=== PATIENT | male | born 1945 | race Caucasian/White ===

== ENCOUNTER → 2017-04-23 | Day surgery (SDC) | payer OTHER ==
[~2017-04-23] MED LIST: ACETAMINOPHEN/HYDROcodone 325 MG/5 MG TAB ONE; BUPIVACAINE/EPINEPHRINE 0.5% PF 10 ML VIAL ONE; EPINEPHrine HCL (1:1000) 1 MG/ML VIAL OTHER ONE; KETOROLAC TROMETHAMINE 30 MG/ML (IVP) VIAL IV PUSH ONE; LACTATED RINGER'S 1000 ML INJ 1,000 ML ONE; MIDAZOLAM HCL 2 MG/2 ML VIAL ONE; ONDANSETRON HCL 4 MG/2 ML VIAL IV PUSH ONE; PROPOFOL 200 MG/20 ML AMP IV ONE; TRIAMCINOLONE ACETONIDE 40 MG/ML VIAL ONE; ceFAZolin INJ 1,000 MG VIAL ONE
--- NOTE | 2017-04-23 22:45 | MP ---
cc: GLADYS VELAZQUEZ M.D. 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 SURGEON Radha Velazquez. DEMAND GENERATION MANAGER Galen Owens, [place] The surgical procedure was assisted by my Advanced Registered Nurse Practitioner. My IRONER HAND presence was necessary throughout this case for the manipulation and positioning of the surgical extremity. My IRONER HAND was assisting me throughout the duration of this procedure. The skill set of an Advance Registered Nurse Practitioner was medically necessary to complete this procedure. During the surgical case, the automotive brake technician was working at the back table and the Advance Registered Nurse Practitioner was directly assisting me. PROCEDURES 1. Left knee arthroscopy with partial medial meniscectomy, 2. Partial lateral meniscectomy, 3. Chondroplasty of the medial femoral condyle, 4. Chondroplasty of the patella. ESTIMATED BLOOD LOSS Minimal ANESTHESIA General anesthesia TOURNIQUET TIME 0 minutes PROCEDURE IN DETAIL The patient was brought back to the operative theater. General anesthesia was administered. He was placed in the supine position. The left lower extremity was prepped and draped in usual sterile fashion after he had been placed into a leg stevens. He received intravenous Ancef. We made standard inferolateral portal incision. We then performed a diagnostic arthroscopy finding mild synovitis in the suprapatellar pouch. There was some grade 2 chondromalacia of the patellofemoral joint with a small area of unstable segment of cartilage off of the patella. We made inferomedial portal. We used an oscillating shaver we removed that small area of unstable segment of cartilage. There was quite a bit of overgrowth of the fat pad which was getting impinged between the patella and the trochlea. We did resect this using the oscillating shaver. The medial femoral condyle had diffuse grade 3 chondromalacia with crystalline deposits within the exposed cartilage. There were some areas of unstable segments so we used an oscillating shaver to perform a chondroplasty. Overall, we estimate that there was about 40% thickness tearing of the cartilage and in some areas slightly more than that. There was a complex tearing of the medial meniscus with a large cleavage noted in the mid body and complex tearing in the posterior horn. Using combination of meniscal biter and oscillating shaver to perform a partial meniscectomy removing the unstable segments of cartilage, we removed approximately 40% of the meniscus. The anterior cruciate ligament was found to be intact. The lateral compartment showed tearing of the anterior horn of the lateral meniscus with unstable segments noted superiorly on the anterior horn. Using the oscillating shaver to debride this, we removed approximately 10% of the meniscus. The remaining meniscus did have an area of some crystalline deposits but no significant deep tearing. There was no significant chondromalacia of the lateral femoral condyle. There were no loose bodies in the medial or lateral gutters. We gave an articular injection with 30 mL 0.25% Marcaine with 40 mg of Kenalog. Portals were closed with 2-0 Vicryl followed by 3-0 nylon. Leg was dressed. Postoperative plan is weight bear as tolerated. MD DENNISE Torre/ /3:50 PM /10:37 PM
== END | disposition home or self-care (01) ==
LOC: ESDC 13:13
PROVIDERS: ATTEND Orthopaedic Surgery
DX: S83.232A Complex tear of medial meniscus, current injury, left knee, initial encounter (principal); S83.282A Other tear of lateral meniscus, current injury, left knee, initial encounter; M22.42 Chondromalacia patellae, left knee
CPT/HCPCS: 01400; 29880; J0171; J0690; J1885; J2250; J2405; J3010; J3301; J7120

== ENCOUNTER 2017-06-21 16:51 | Emergency (ER) | payer OTHER ==
[2017-06-21 17:49] VITALS: BP 129/80; PULSE 69; RESP 18; TEMP 97.7; O2SAT 95
== END 2017-06-21 21:44 | disposition left against medical advice (07) ==
LOC: PHED 16:51
DX: S81.811A Laceration without foreign body, right lower leg, initial encounter (principal); X58.XXXA Exposure to other specified factors, initial encounter
CPT/HCPCS: 99281

== ENCOUNTER 2017-06-21 22:19 | Emergency (ER) | payer OTHER ==
[~2017-06-21] VITALS: Ht 172.7 cm; Wt 94.0 kg
[2017-06-21 22:20] VITALS: BP 136/79; PULSE 70; RESP 16; TEMP 98.4; O2SAT 96
--- NOTE | 2017-06-21 23:06 | PD ---
HPI Chief Complaint: Laceration/Skin Injury Time Seen by Provider: 22:55 Travel History International Travel<30 days: No Contact w/Intl Traveler<30days: No Traveled to known affect area: No History of Present Illness HPI 72-year-old white male presents to emergency department with a laceration to his right pretibial region from a piece of metal on a stool that had broken this afternoon when he was working in the yard. He denies any numbness or tingling. He has not had a tetanus shot over 5 years. He denies any other injuries. [facility] Past Medical History Narrative Medical Hypertension, hypercholesterolemia, BPH Cardiovascular Problems: Yes (HTN) Tetanus Vaccination: > 5 Years Social History Alcohol Use: No Tobacco Use: No Substance Use: No Allergies-Medications (Allergen,Severity, Reaction): Coded Allergies: No Known Allergies (Verified , 06/21/17) Uncoded Allergies: NKA (Allergy, Unknown, 06/19/03) Reported Meds & Prescriptions Reported Meds & Active Scripts Active Review of Systems Except as stated in HPI: all other systems reviewed are Neg Physical Exam Narrative GENERAL: This is a well-nourished, well-developed patient, in no apparent distress. SKIN: No rashes, ecchymoses or lesions. Warm and dry. HEAD: Atraumatic. Normocephalic. EYES: PERRL, EOMI, no discharge or injection. No scleral icterus. EARS: Clear NOSE: Nasal turbinates appear normal. THROAT: Mucosa pink and moist. Airway patent. NECK: Trachea midline. supple, moves head freely. LUNGS: Clear to auscultation. CV: Regular in rhythm. ABDOMEN: Soft nontender. EXT: No clubbing cyanosis or edema. Patient has a 5 cm laceration to the right anterior pretibial region of the right lower leg. No foreign body. Neurovascular intact. Data Data Last Documented VS Vital Signs Date Time Temp Pulse Resp B/P (MAP) Pulse Ox O2 Delivery O2 Flow Rate FiO2 06/21/17 22:20 98.4 70 16 136/79 (98) 96 Room Air Orders Orders Tetanus/Diphtheria Tox Adult (Tetanus/Di (06/21/17 23:15) Lidocaine 1% Inj (50 Ml) (Xylocaine 1% I (06/21/17 23:15) MDM Medical Decision Making Medical Screen Exam Complete: Yes Emergency Medical Condition: Yes Medical Record Reviewed: Yes Differential Diagnosis MDM: High Differential diagnoses: Fracture, sprain, strain, dislocation, contusion, neurovascular injury Narrative Course Patient's tetanus status updated. The wound is cleansed and sutured. Procedures Procedure Narrative LACERATION LOCATION: Right pretibial region LENGTH: 5 cm NUMBER OF STITCHES/SUDHA: 6 REPAIR: The area of the laceration was prepped with Betadine and sterilely draped. The laceration was infiltrated with 1% lidocaine. The wound was copiously irrigated and explored without evidence of foreign body, tendon injury or neurovascular injury. The wound was closed using 4-0 proline. This was a supple single layer repair. A sterile dressing was applied. The patient was advised to keep the dressing clean and dry. Patient tolerated the procedure well. Diagnosis Primary Impression: Laceration of right lower leg Qualified Codes: S81.811A - Laceration without foreign body, right lower leg, initial encounter Patient Instructions: General Instructions Additional Instructions: Rest. Elevation. Tylenol and Advil for pain. Daily wound care with soap, water, Neosporin. Sutures out in 10 days. Return to the ER if any problems. Med/Other Pt SpecificInfo: Wound Care Disposition: DISCHARGE HOME Condition: Stable Romulo Valverde Jun 21, 2017 23:05
[2017-06-21] MEDS ORDERED: LIDOCAINE HCL 1% 50 ML VIAL INFIL ONE (23:15)
[2017-06-21] MEDS ORDERED: TETANUS/DIPHTHERIA TOXOID ADULT 0.5 ML VIAL IM ONE (23:15)
== END 2017-06-21 23:47 | disposition home or self-care (01) ==
LOC: NEPD 22:19
DX: S81.811A Laceration without foreign body, right lower leg, initial encounter (principal); I10 Essential (primary) hypertension; E78.00 Pure hypercholesterolemia, unspecified; N40.0 Benign prostatic hyperplasia without lower urinary tract symptoms; Z23 Encounter for immunization; W45.8XXA Other foreign body or object entering through skin, initial encounter; Y92.096 Garden or yard of other non-institutional residence as the place of occurrence of the external cause
CPT/HCPCS: 12002; 90471; 90714